=== PATIENT | female | born 1935 | race Caucasian/White ===

== ENCOUNTER 2016-11-08 10:52 | Inpatient (IN) | payer MEDICARE, BC ==
[~2016-11-08] VITALS: Ht 162.6 cm; Wt 59.0 kg
[2016-11-08] MEDS ORDERED: PREDNISONE20 MG PO (13:35)
[2016-11-08] MEDS ORDERED: SYNTHROID50 MCG PO (13:36)
[2016-11-08] MEDS ORDERED: PREDNISOLONE ACETATE OS (13:37)
[2016-11-08] MEDS ORDERED: SULFACETAMIDE OS (13:37)
[2016-11-08] MEDS ORDERED: SPIRIVA18 MCG INH (13:37)
[2016-11-08] MEDS ORDERED: VITAMIN D2000 UNI1 PO (13:38)
[2016-11-08] MEDS ORDERED: ASPIR-LOW81 MG PO (13:38)
[2016-11-08] MEDS ORDERED: ALBUTEROL2.5 MG/3 M INH (13:39)
[2016-11-08] MEDS ORDERED: FISH OIL 10001000 MG PO (13:39)
[2016-11-08] MEDS ORDERED: DULERA 100 MCG8.8 GM INH (13:40)
[2016-11-08] MEDS ORDERED: FLUTICASONE PRO16 GM (13:42)
[2016-11-08] MEDS ORDERED: PROAIR HFA8.5 GM INH (13:43)
[2016-11-09 06:12] LABS: BUN/CREATININE RATIO 33 (0-10)
[2016-11-09 07:05] LABS: HEMOGLOBIN 13.3 gm/dl (12.3-15.3); RED BLOOD COUNT 4.31 M/UL (4.00-5.10); WHITE BLOOD COUNT 17.6 K/UL (4.5-11.0)
[2016-11-10 04:03] LABS: HEMOGLOBIN 12.8 gm/dl (12.3-15.3); WHITE BLOOD COUNT 20.5 K/UL (4.5-11.0)
[2016-11-10 04:24] LABS: BUN/CREATININE RATIO 33 (0-10)
[2016-11-11 04:58] LABS: RED BLOOD COUNT 4.02 M/UL (4.00-5.10); WHITE BLOOD COUNT 20.7 K/UL (4.5-11.0)
[2016-11-11 05:23] LABS: BUN/CREATININE RATIO 34 (0-10)
[2016-11-12 05:53] LABS: HEMOGLOBIN 13.1 gm/dl (12.3-15.3); RED BLOOD COUNT 4.04 M/UL (4.00-5.10); WHITE BLOOD COUNT 16.6 K/UL (4.5-11.0)
[2016-11-12 06:04] LABS: BUN/CREATININE RATIO 30 (0-10)
[2016-11-13 06:04] LABS: HEMOGLOBIN 12.2 gm/dl (12.3-15.3); RED BLOOD COUNT 3.86 M/UL (4.00-5.10); WHITE BLOOD COUNT 16.5 K/UL (4.5-11.0)
[2016-11-13 06:25] LABS: BUN/CREATININE RATIO 30 (0-10)
== END 2016-11-15 13:30 | DRG 189 ==
LOC: M/S 10:52 → CCU 11:40 → M/S 11:40 → MED SURG 4 11:40 → CCU 14:01 → MED SURG 4 11-11 21:39
PROVIDERS: Emergency Medicine; Hospitalist; Internal Medicine; ADMIT Internal Medicine
PROC: 5A09457 Assistance with Respiratory Ventilation, 24-96 Consecutive Hours, Continuous Positive Airway Pressure (ICD-10-PCS; principal; 2016-11-08)
DX: J96.22 Acute and chronic respiratory failure with hypercapnia (principal); J44.1 Chronic obstructive pulmonary disease with (acute) exacerbation; I47.2 Ventricular tachycardia; E87.1 Hypo-osmolality and hyponatremia; J44.0 Chronic obstructive pulmonary disease with (acute) lower respiratory infection; J98.11 Atelectasis; J96.21 Acute and chronic respiratory failure with hypoxia; E03.9 Hypothyroidism, unspecified; E78.5 Hyperlipidemia, unspecified; J20.9 Acute bronchitis, unspecified; J45.909 Unspecified asthma, uncomplicated; D72.829 Elevated white blood cell count, unspecified; T38.0X5A Adverse effect of glucocorticoids and synthetic analogues, initial encounter; R00.1 Bradycardia, unspecified; K57.90 Diverticulosis of intestine, part unspecified, without perforation or abscess without bleeding; F41.9 Anxiety disorder, unspecified; Z87.891 Personal history of nicotine dependence; Z85.3 Personal history of malignant neoplasm of breast; Z79.82 Long term (current) use of aspirin; Z79.52 Long term (current) use of systemic steroids; Z79.51 Long term (current) use of inhaled steroids; Z79.899 Other long term (current) drug therapy; Z88.0 Allergy status to penicillin; Z90.11 Acquired absence of right breast and nipple; Z90.721 Acquired absence of ovaries, unilateral; Z98.42 Cataract extraction status, left eye; Z98.41 Cataract extraction status, right eye; Z96.1 Presence of intraocular lens; Z98.890 Other specified postprocedural states; Z82.49 Family history of ischemic heart disease and other diseases of the circulatory system
CPT/HCPCS: ECHO; 36415; 36600; 71010; 71020; 80048; 80202; 82550; 82553; 82803; 82962; 83735; 84132; 84439; 84443; 84484; 85027; 86140; 87070; 87081; 87205; 93005; 93306; 94640; 94660; 94664; 97110; 97116; 97530; J1650; J1956; J2405; J2920; J2930; J3370; J7050; J7070